=== PATIENT | male | born 1950 | race Caucasian/White ===

== ENCOUNTER 2017-03-13 13:44 | Emergency (ER) | payer OTHER, MEDICARE ==
[2017-03-13 14:29] VITALS: BP 151/66; PULSE 94; TEMP 98.5; BMI 28.8
--- NOTE | 2017-03-13 16:19 | PDOC ---
History of Present Illness - General Chief Complaint: RX Refill Stated Complaint: PAIN - History of Present Illness Initial Comments: 03/13/17 16:18 `CHIEF COMPLAINT: rx refill HISTORY OF PRESENT ILLNESS: 66 yo M with history of HTN, depression/anxiety, bladder cancer s/p multiple TURPs and chemotherapy, bilateral Achilles tendon rupture secondary to Levaquin, chronic pain from multiple spinal surgeries, and progressive CKD presents to fast track requesting refill of pain medication. Patient reports he ran out of oxycodone and is due for appointment with is pain management doctor in 3 days but is experiencing severe pain. He requests medication to hold him over until he can see pain management again. Patient and report that the usually puts all the medication in a safe and "gives him the exact number of pills each day." but this time for some reason they seemed to not have enough. Patient is tearful ; both he and question if "there might have been pills missing from both of the medications filled last time so we ran out." No recent travel or sick contacts. PAST MEDICAL HISTORY: as per HPI FAMILY HISTORY: Denies SOCIAL HISTORY:Denies tobacco, alcohol, illicit drug use. SURGICAL HISTORY: Denies ALLERGIES: No known drug allergies REVIEW OF SYSTEMS General/Constitutional: Denies fever or chills. Denies weakness. HEENT: Denies change in vision. Denies ear pain or discharge. Denies sore throat. Cardiovascular: Denies chest pain or shortness of breath. Respiratory: Denies cough, wheezing, or hemoptysis. Gastrointestinal: Denies nausea, vomiting, diarrhea or constipation. Denies rectal bleeding. Genitourinary: Denies dysuria, frequency, or change in urination. Musculoskeletal: Chronic pain to back s/p several spinal surgeries. Skin: Denies rash or easy bruising. Neurologic: Denies headache, vertigo, loss of consciousness, or loss of sensation. PHYSICAL EXAM General Appearance: Uncomfortable-appearing HEENT: EOMI, PERRLA, normal ENT inspection. No conjunctival pallor. No photophobia, scleral icterus. Respiratory/Chest: Lungs CTAB. Cardiovascular: RRR. S1, S2. Vascular Pulses: Dorsalis-Pedis (R): 2+, Dorsalis-Pedis (L): 2+ Gastrointestinal/Abdominal: Normal bowel sounds. Abdomen soft, non-distended. No tenderness or rebound tenderness. No organomegaly, pulsatile mass, guarding , hernia, hepatomegaly, splenomegaly. Musculoskeletal/Extremities: Normal inspection. FROM of all extremities, normal capillary refill. Pelvis Stable. No CVA tenderness. No tenderness to extremities, pedal edema, swelling, erythema or deformity. Integumentary: Appropriate color, dry, warm. No cyanosis, erythema, jaundice or rash Neurologic: office executive II-XII intact. Fully oriented, alert. Appropriate mood/affect. Motor strength 5/5. No appreciable EOM palsy, facial droop or sensory deficit. Past History - Past Medical History Allergies/Adverse Reactions: Allergies Allergy/AdvReac Type Severity Reaction Status Date / Time Penicillins Allergy Verified 03/13/17 14:23 Quinolones Allergy Verified 03/13/17 14:23 Home Medications: Ambulatory Orders Alprazolam [Xanax] 1 mg PO TID 07/09/15 Docusate Sodium [Colace -] 100 mg PO TID 07/09/15 Amlodipine Besylate [Norvasc -] 10 mg PO DAILY #30 tablet 07/14/15 Aspirin [ASA -] 81 mg PO DAILY #30 tab.chew 07/14/15 Ferrous Sulfate [Feosol] 325 mg PO BID #60 ud 07/14/15 Metoprolol Succinate [Toprol XL -] 50 mg PO DAILY #30 tab.sr.24h 07/14/15 Tamsulosin HCl [Flomax -] 0.4 mg PO BID #60 cap.er.24h 07/14/15 Venlafaxine HCl [Effexor -] 150 mg PO DAILY 07/21/15 Oxycodone HCl [Oxycontin] 30 mg PO Q8H PRN #24 tab.er.12h MDD 3 tabs 07/27/15 Polyethylene Glycol 3350 [Miralax 119 gm Btl -] 17 gm PO DAILY 08/06/15 Oxycodone HCl 30 mg PO QID 3 Days #12 tablet MDD 4 03/13/17 Anemia: Yes Asthma: No Cancer: No Cardiac Disorders: No CVA: No COPD: No CHF: No Dementia: No Diabetes: No Dialysis: Yes (thu) GI Disorders: No Disorders: Yes (stones, stent) HTN: Yes Hypercholesterolemia: No Liver Disease: No Seizures: No Thyroid Disease: No - Surgical History Abdominal Surgery: No Cholecystectomy: Yes Lung Surgery: No Neurologic Surgery: Yes (LAMINECTOMY, DISCECTOMY) Orthopedic Surgery: Yes - Suicide/Smoking/Psychosocial Hx Smoking History: Never smoked Have you smoked in the past 12 months: No Hx Alcohol Use: No Drug/Substance Use Hx: No Substance Use Type: None Hx Substance Use Treatment: No *Physical Exam - Vital Signs Last Vital Signs Temp Pulse Resp BP Pulse Ox 98.5 F 94 H 19 151/66 95 03/13/17 14:23 03/13/17 14:23 03/13/17 14:23 03/13/17 14:23 03/13/17 14:23 Medical Decision Making - Medical Decision Making 03/13/17 16:21 66 yo M with history of HTN, depression/anxiety, bladder cancer s/p multiple TURPs and chemotherapy, bilateral Achilles tendon rupture secondary to Levaquin , chronic pain from multiple spinal surgeries, and progressive CKD presents to fast track requesting refill of pain medication. [facility] iSTOP: Others' Prescriptions Patient Name: Buddy Brown Date: 1950 Address: [address] [place] [address] [place] [address] Sex: Male Rx Written Rx Dispensed Drug Quantity Days Supply Prescriber Name 02/18/2017 02/18/2017 alprazolam 1 mg tablet 120 30 Shelley Jaime MD 02/16/2017 02/17/2017 oxycodone hcl 30 mg tablet 100 25 Nakul Lynn MD 02/16/2017 02/16/2017 oxycontin 40 mg tablet 90 30 Nakul Lynn MD 01/19/2017 01/20/2017 oxycontin 60 mg tablet 90 30 Nakul Lynn MD 01/19/2017 01/19/2017 oxycodone hcl 30 mg tablet 60 30 Nakul Lynn MD 01/05/2017 01/16/2017 alprazolam 1 mg tablet 120 30 Shelley Jaime MD 12/24/2016 12/24/2016 oxycontin 40 mg tablet 90 30 Nakul Lynn MD 12/24/2016 12/24/2016 oxycodone hcl 30 mg tablet 100 25 Nakul Lynn MD 12/18/2016 12/19/2016 alprazolam 1 mg tablet 120 30 Chiquita Hardin MD 11/26/2016 11/27/2016 oxycontin 40 mg tablet 90 30 Nakul Lynn MD 11/26/2016 11/26/2016 oxycodone hcl 30 mg tablet 120 30 Nakul Lynn MD 11/21/2016 11/22/2016 alprazolam 1 mg tablet 120 30 Chiquita Hardin MD Patient is opiate dependent but there does not appear to be abuse per rx history. Will rx script for 3 days until patient can be seen by pain mgmt. Advised patient to take medications as prescribed and follow up with pain management as scheduled. Advised patient of signs and symptoms for return to ER ; patient verbalized understanding and agrees to plan. *DC/Admit/Observation/Transfer Diagnosis at time of Disposition: Medication refill Chronic pain Qualifiers: Chronic pain type: other chronic pain Qualified Code(s): G89.29 - Other chronic pain - Discharge Dispostion Disposition: HOME Condition at time of disposition: Stable Admit: No - Prescriptions Prescriptions: Oxycodone HCl 30 mg PO QID 3 Days #12 tablet MDD 4 - Referrals Referrals: April Isabel [Primary Care Provider] - - Patient Instructions Printed Discharge Instructions: DI for Chronic Pain -- Adult Additional Instructions: Please follow up with Dr. Lynn as scheduled. If you develop any new pain, weakness, fever, chills, vomiting, diarrhea, change in behavior, loss of memory , or any new or worsening symptoms, please return to the ER. - Post Discharge Activity
[2017-03-13] MEDS ORDERED: oxyCODONE HCL 5 MG TABLET PO ONE (16:33)
[2017-03-13] MEDS ORDERED: oxyCODONE HCL 5 MG TABLET ONE (16:43)
== END 2017-03-13 16:58 | disposition home or self-care (01) ==
LOC: JERFT 13:44
DX: G89.29 Other chronic pain (principal); I10 Essential (primary) hypertension; F41.8 Other specified anxiety disorders; Z85.51 Personal history of malignant neoplasm of bladder; I12.0 Hypertensive chronic kidney disease with stage 5 chronic kidney disease or end stage renal disease; N18.6 End stage renal disease; N17.8 Other acute kidney failure; Z99.2 Dependence on renal dialysis
CPT/HCPCS: 99281-25

== ENCOUNTER 2017-04-09 13:32 | Emergency (ER) | payer OTHER, MEDICARE ==
[2017-04-09 13:39] VITALS: BP 130/56; PULSE 83; TEMP 98.1; BMI 28.7
[2017-04-09] MEDS ORDERED: oxyCODONE HCL 5 MG TABLET PO ONE (15:23)
--- NOTE | 2017-04-09 15:23 | PDOC ---
History of Present Illness - General Chief Complaint: RX Refill Stated Complaint: ABD PAIN, RX REFILL Time Seen by Provider: 04/09/17 15:02 History Source: Patient, Spouse Exam Limitations: No Limitations - History of Present Illness Initial Comments: 04/09/17 15:13 And came to this emergency department with with complaints of chronic pain and requesting pain medication to last him through Thursday where he has his next pain management appointment at Dr. Agarwal office. Multiple medical complaints including extensive orthopedic injuries and chronic pain from spinal surgery cervical and lumbar. States has kidney transplant and cardiac disease. Has been seeing pain management for 14 years and using narcotic for pain control that time. States was taking medication but not reading the bottles carefully and taking the wrong amount of either tablet thus incurring a shortage for his monthly allotment. Shows 2 empty bottles= one of OxyContin 40 mg- 90tabs and 1 of oxycodone 30 mg- 100tabs that were filled 03/16/2017. Reviewing previous chart from visit on March 13, the chief complaint is almost identical to patient's complaint today: Same misunderstanding, same overuse of medication, multiple concerns about his chronic disease and possibility of withdrawal. This note written Mar from Silvia Weston, "66 yo M with history of HTN, depression/anxiety, bladder cancer s/p multiple TURPs and chemotherapy, bilateral Achilles tendon rupture secondary to Levaquin , chronic pain from multiple spinal surgeries, and progressive CKD presents to fast track requesting refill of pain medication. Patient reports he ran out of oxycodone and is due for appointment with is pain management doctor in 3 days but is experiencing severe pain. He requests medication to hold him over until he can see pain management again. Patient and report that the usually puts all the medication in a safe and "gives him the exact number of pills each day." but this time for some reason they seemed to not have enough. Patient is tearful ; both he and question if "there might have been pills missing from both of the medications filled last time so we ran out." 04/09/17 15:39 Timing/Duration: unsure Associated Symptoms: reports: loss of appetite, malaise. denies: fever/chills Past History - Travel Traveled outside of the country in the last 30 days: No Close contact w/someone who was outside of country & ill: No - Past Medical History Allergies/Adverse Reactions: Allergies Allergy/AdvReac Type Severity Reaction Status Date / Time Penicillins Allergy Verified 04/09/17 13:39 Quinolones Allergy Verified 04/09/17 13:39 Home Medications: Ambulatory Orders Alprazolam [Xanax] 1 mg PO TID 07/09/15 Docusate Sodium [Colace -] 100 mg PO TID 07/09/15 Aspirin [ASA -] 81 mg PO DAILY #30 tab.chew 07/14/15 Metoprolol Succinate [Toprol XL -] 50 mg PO DAILY #30 tab.sr.24h 07/14/15 Tamsulosin HCl [Flomax -] 0.4 mg PO BID #60 cap.er.24h 07/14/15 Venlafaxine HCl [Effexor -] 150 mg PO DAILY 07/21/15 Oxycodone HCl [Oxycontin] 30 mg PO Q8H PRN #24 tab.er.12h MDD 3 tabs 07/27/15 Oxycodone HCl 30 mg PO QID 3 Days #12 tablet MDD 4 03/13/17 Mycophenolate Mofetil [Cellcept -] 250 mg PO BID 04/09/17 Oxycodone HCl 30 mg PO BID #6 tablet MDD 2 04/09/17 Tacrolimus 1 mg PO ASDIR 04/09/17 Anemia: Yes Asthma: No Cancer: No Cardiac Disorders: No CVA: No COPD: No CHF: No Dementia: No Diabetes: No Dialysis: Yes GI Disorders: No Disorders: Yes (stones, stent) HTN: Yes Hypercholesterolemia: No Liver Disease: No Seizures: No Thyroid Disease: No - Surgical History Abdominal Surgery: No Cholecystectomy: Yes Lung Surgery: No Neurologic Surgery: Yes (LAMINECTOMY, DISCECTOMY) Orthopedic Surgery: Yes - Suicide/Smoking/Psychosocial Hx Smoking History: Never smoked Have you smoked in the past 12 months: No Hx Alcohol Use: No Drug/Substance Use Hx: No Substance Use Type: None Hx Substance Use Treatment: No Review of Systems - Review of Systems Able to Perform ROS?: Yes Is the patient limited Chinese proficient: Yes Constitutional: Yes: Symptoms Reported, See HPI HEENTM: No: Symptoms Reported Respiratory: No: Symptoms reported Musculoskeletal: Yes: See HPI. No: Symptoms Reported All Other Systems: Reviewed and Negative *Physical Exam - Vital Signs Last Vital Signs Temp Pulse Resp BP Pulse Ox 98.1 F 83 16 130/56 95 04/09/17 13:34 04/09/17 13:34 04/09/17 13:34 04/09/17 13:34 04/09/17 13:34 - Physical Exam General Appearance: Yes: Nourished, Appropriately Dressed HEENT: positive: ZAHRA, TMs Normal Neck: positive: Supple, Lymphadenopathy (R), Lymphadenopathy (L). negative: Tender Respiratory/Chest: positive: Lungs Clear Cardiovascular: positive: Regular Rate Gastrointestinal/Abdominal: positive: Soft Extremity: positive: Delayed Capillary Refill, Pedal Edema. negative: Normal Capillary Refill, Normal Range of Motion Integumentary: positive: Dry, Warm, Pale, Swelling (PVD changes ) Neurologic: positive: bioinformatics support specialist II-XII NML intact, Fully Oriented, Alert, Normal Mood/ Affect, Normal Response, Motor Strength 5/5 Medical Decision Making - Medical Decision Making 04/09/17 15:17 discussed case with DOROTEO Ram, at Dr Lynn - pain management who states he and Dr Lynn has had this conversation with Mr Brown and his multiple occasions and pateint understands that he is obligated to stay with in the realm of his pain management guidelines and that no further pain medications / narcotics can be prescribed than a monthly dose. He stated theyt Have discussed alternative plans or pain control forms which Mr. Brown is resistant to try. All this discussiion reviewed with pateint and and made agreement to give # 6 tabs of 30mg Oxycodone only to use sparingly this weekend to avoid detox symptoms and that further arrangements would be made at appt Thursday. 1 dose of 30mg oxycodone given here. 04/09/17 15:48 *DC/Admit/Observation/Transfer Diagnosis at time of Disposition: Request for narcotic pain medication - Discharge Dispostion Disposition: HOME Condition at time of disposition: Stable Admit: No - Referrals Referrals: April Isabel [Primary Care Provider] - - Patient Instructions Printed Discharge Instructions: Pain Relief Medications: Are They Good for You? Additional Instructions: Use pain medication provided to last through weekend as no more medication may be prescribed per advice of pain management and guidelines - Post Discharge Activity
[2017-04-09] MEDS ORDERED: oxyCODONE HCL 5 MG TABLET ONE (15:30)
== END 2017-04-09 15:58 | disposition home or self-care (01) ==
LOC: JERFT 13:32
DX: Z76.0 Encounter for issue of repeat prescription (principal); I10 Essential (primary) hypertension; F32.9 Major depressive disorder, single episode, unspecified; G89.29 Other chronic pain
CPT/HCPCS: 99281-25